=== PATIENT | female | born 1955 | race Hispanic/Latino ===

== ENCOUNTER 2023-05-01 09:03 | Emergency (ER) | payer BC ==
[~2023-05-01] VITALS: Ht 165.1 cm; Wt 108.0 kg
[2023-05-01 11:52] VITALS: BP 133/78; PULSE 78; RESP 18; O2SAT 98
== END 2023-05-01 11:47 | disposition home or self-care (01) ==
LOC: EDH 09:03
DX: T17.228A Food in pharynx causing other injury, initial encounter (principal); R05.9 Cough, unspecified; I10 Essential (primary) hypertension; E11.9 Type 2 diabetes mellitus without complications; Z90.49 Acquired absence of other specified parts of digestive tract; Z90.89 Acquired absence of other organs; Z98.890 Other specified postprocedural states
CPT/HCPCS: 71045